=== PATIENT | female | born 1970 | race Caucasian/White ===

== ENCOUNTER 2024-10-24 18:12 | Emergency (ER) | payer OTHER ==
[~2024-10-24] VITALS: Ht 157.5 cm; Wt 88.6 kg
[2024-10-24] MEDS ORDERED: CYMBALTA20 MG PO (18:23)
[2024-10-24 19:43] LABS: PH, VENOUS 7.421 (7.31-7.41)
[2024-10-24 19:46] LABS: BASOPHILS 0.7 % (0-2); HEMATOCRIT 43.8 % (35.0-50.0); HEMOGLOBIN 14.8 g/dL (12.0-18.0); LYMPHOCYTES 35.8 % (24-44); MCH 29.6 (27-36); MCHC 33.7 g/dl (30-36); MCV 87.6 fl (81-99); MONOCYTES 11.1 % (0-12); NEUTROPHILS 49.4 % (39-80); PLATELET COUNT 283 K/uL (140-440); RBC 4.99 M/ul (4.3-5.7); RDW 13.6 (10.5-15.0)
[2024-10-24 20:09] LABS: ALBUMIN 3.6 g/dL (3.4-5.0); ALKALINE PHOSPHATASE 114 U/L (46-116); ALT (SGPT) 29 U/L (14-59); ANION GAP 13.8 (7-21); AST (SGOT) 16 U/L (15-37); BILIRUBIN, TOTAL 0.3 ng/dL (0.2-1.0); CALCIUM 9.1 mg/dL (8.5-10.1); CARBON DIOXIDE 25 mmol/L (21-32); CHLORIDE 106 mmol/L (98-107); CREATININE, SERUM 1.04 mg/dL (0.55-1.02); GLOMERULAR FILTRATION RATE,EST 63 mL/min (>60); POTASSIUM 3.8 mmol/L (3.5-5.1); PROTEIN, TOTAL 7.2 g/dL (6.4-8.2); UREA NITROGEN 13 mg/dL (7-18)
[2024-10-24 20:21] LABS: INFLUENZA B NAA NEGATIVE (NEGATIVE); RESPIRATORY SYNCYTIAL VIR NAA NEGATIVE (NEGATIVE)
[2024-10-24] MEDS ORDERED: ALBUTEROL SULFATE 8 GM HOME.PACK INH ONE (21:00)
[2024-10-24] MEDS ORDERED: INHALER, ASSIST DEVICES 1 EACH SPACER MISC ONE (21:00)
[2024-10-24 21:49] VITALS: BP 139/80
== END 2024-10-24 21:48 | disposition home or self-care (01) ==
LOC: ED 18:12
PROVIDERS: Family Medicine
DX: J98.01 Acute bronchospasm (principal); Z88.0 Allergy status to penicillin; Z79.899 Other long term (current) drug therapy
CPT/HCPCS: 36415; 71045; 80053; 82803; 83880; 84484; 85025; 85379; 87502; 94640; 94664; 99285-25; U0002

== ENCOUNTER 2025-01-04 12:45 | Emergency (ER) | payer OTHER ==
[~2025-01-04] VITALS: Ht 157.5 cm; Wt 88.0 kg
[2025-01-04 13:10] LABS: BASOPHILS 0.4 % (0-2); EOSINOPHILS 2.4 % (0-6); HEMATOCRIT 46.4 % (35.0-50.0); HEMOGLOBIN 15.5 g/dL (12.0-18.0); LYMPHOCYTES 29.5 % (24-44); MCH 29.4 (27-36); MCHC 33.3 g/dl (30-36); MCV 88.2 fl (81-99); MONOCYTES 10.6 % (0-12); NEUTROPHILS 57.1 % (39-80); PLATELET COUNT 325 K/uL (140-440); RBC 5.26 M/ul (4.3-5.7); RDW 13.9 (10.5-15.0)
[2025-01-04] MEDS ORDERED: NITROGLYCERIN 0.4 MG SUBL SL PRN (13:15)
[2025-01-04] MEDS ORDERED: ASPIRIN 81 MG CHEW PO ONE (13:15)
[2025-01-04 13:22] LABS: ALBUMIN 3.7 g/dL (3.4-5.0); ALBUMIN/GLOBULIN RATIO 0.97 (1.1-2.4); ALKALINE PHOSPHATASE 105 U/L (46-116); ALT (SGPT) 35 U/L (14-59); ANION GAP 18.2 (7-21); AST (SGOT) 19 U/L (15-37); BILIRUBIN, TOTAL 0.4 ng/dL (0.2-1.0); CALCIUM 9.5 mg/dL (8.5-10.1); CARBON DIOXIDE 23 mmol/L (21-32); CHLORIDE 107 mmol/L (98-107); CREATININE, SERUM 0.99 mg/dL (0.55-1.02); GLOMERULAR FILTRATION RATE,EST 67 mL/min (>60); MAGNESIUM 1.9 mg/dL (1.8-2.4); POTASSIUM 4.2 mmol/L (3.5-5.1); PROTEIN, TOTAL 7.5 g/dL (6.4-8.2); UREA NITROGEN 10 mg/dL (7-18)
[2025-01-04] MEDS ORDERED: LIDOCAINE & ANTACID 35 ML BTL PO ONE (15:15)
[2025-01-04 16:16] VITALS: BP 127/91
== END 2025-01-04 16:19 | disposition home or self-care (01) ==
LOC: ED 12:45
PROVIDERS: Internal Medicine
DX: R07.89 Other chest pain (principal); Z88.0 Allergy status to penicillin; Z79.899 Other long term (current) drug therapy
CPT/HCPCS: 36415; 71045; 80053; 83735; 84484; 85025; 93005; 93010; 99285-25; A9270

== ENCOUNTER 2025-11-13 12:14 | Emergency (ER) | payer OTHER ==
[~2025-11-13] VITALS: Ht 157.5 cm; Wt 91.6 kg
[~2025-11-13 12:14] MED LIST: CYMBALTA20 MG PO; PRILOSEC OTC20 MG PO
[2025-11-13 14:18] LABS: BASOPHILS 0.4 % (0.1-1.2); EOSINOPHILS 2.7 % (0.7-5.8); LYMPHOCYTES 34.3 % (19.3-51.7); MCH 28.7 PG (25.6-32.2); MCHC 33.4 g/dL (32.2-35.5); MCV 86.0 fL (79.4-94.8); MONOCYTES 9.8 % (4.7-12.5); NEUTROPHILS 52.7 % (34.0-71.1); RBC 5.15 M/uL (3.93-5.22)
[2025-11-13 14:39] LABS: ALT (SGPT) 32.0 U/L (14-59); AST (SGOT) 18.0 U/L (15-37); GLOMERULAR FILTRATION RATE,EST 77.0 mL/min (>60); PROTEIN, TOTAL 7.3 g/dL (6.4-8.2); UREA NITROGEN 10.0 mg/dL (7-18)
[2025-11-13] MEDS ORDERED: MAGNESIUM CITRATE 300 ML BTL PO ONE (16:45)
== END 2025-11-13 16:36 | disposition home or self-care (01) ==
LOC: ED 12:14
PROVIDERS: Emergency Medicine
DX: R10.32 Left lower quadrant pain (principal); Z91.018 Allergy to other foods; Z88.0 Allergy status to penicillin
CPT/HCPCS: 36415; 74177; 80053; 83690; 85025; 99284-25; Q9967